=== PATIENT | male | born 1980 | race African-American/Black ===

== ENCOUNTER 2020-06-26 22:39 | Emergency (ER) | payer MEDICAID ==
[~2020-06-26] VITALS: Ht 182.9 cm; Wt 91.0 kg
[2020-06-27 00:15] VITALS: BP 141/75
[2020-06-27] MEDS ORDERED: BACITRACIN ZINC OINT UDPKT TOP ONE (00:15)
[2020-06-27] MEDS ORDERED: TETANUS, DIPHTHERIA, PERTUSSIS VAC/PF 0.5ML (>7YR OLD) IM ONE (00:15)
[2020-06-27] MEDS ORDERED: TRAMADOL 50MG TABLET PO ONE (00:30)
[2020-06-27] MEDS ORDERED: ACETAMINOPHEN 325MG TABLET PO ONE (00:30)
[2020-06-27] MEDS ORDERED: AMOX-424 MT (00:43)
[2020-06-27] MEDS ORDERED: BO1 TP (00:46)
[2020-06-27] MEDS ORDERED: AMPICILLIN SODIUM IM SCH (01:00)
[2020-06-27] MEDS ORDERED: SULBACTAM NA IM SCH (01:00)
== END 2020-06-27 01:30 | disposition home or self-care (01) ==
LOC: ER 22:39
DX: S61.411A Laceration without foreign body of right hand, initial encounter (principal); L03.113 Cellulitis of right upper limb; Y04.0XXA Assault by unarmed brawl or fight, initial encounter; Y04.1XXA Assault by human bite, initial encounter; Y93.89 Activity, other specified; Y92.89 Other specified places as the place of occurrence of the external cause; Y99.8 Other external cause status
CPT/HCPCS: 73130; 99283; J0295

== ENCOUNTER 2022-08-01 00:54 | Emergency (ER) | payer SELFPAY ==
[~2022-08-01] VITALS: Ht 182.9 cm; Wt 109.0 kg
[~2022-08-01 00:54] MED LIST: AMOX-424 MT; BO1 TP
[2022-08-01 01:14] VITALS: O2SAT 98
[2022-08-01] MEDS ORDERED: IBUPROFEN 800MG TABLET PO ONE (03:15)
[2022-08-01 03:58] VITALS: BP 121/90
[2022-08-01] MEDS ORDERED: IBUP-2029 MT (04:52)
[2022-08-01 06:03] VITALS: PULSE 78; RESP 15; TEMP 97.8
== END 2022-08-01 06:04 | disposition home or self-care (01) ==
LOC: ER 00:54
DX: S90.01XA Contusion of right ankle, initial encounter (principal); X58.XXXA Exposure to other specified factors, initial encounter; Y93.89 Activity, other specified; Y92.89 Other specified places as the place of occurrence of the external cause; Y99.8 Other external cause status
CPT/HCPCS: 73610; 73630; 99284; Z7610